=== PATIENT | female | born 1950 | race Caucasian/White ===

== ENCOUNTER 2024-03-22 10:45 | Emergency (ER) | payer MEDICARE, SELFPAY ==
[2024-03-22 10:57] VITALS: PULSE 77; RESP 18; TEMP 37.2; O2SAT 94; BMI 37.2
--- NOTE | 2024-03-22 11:06 | ECG_ITS ---
[facility]24[facility]22 Pat Name: Miriam Duque Department: Room: Gender: Female [employer]ic: : [id number] Requested By: Delvis Silva Order Number: [id number] Vivek MD: Marshall Crandall M.D. Measurements Intervals [place] Rate: 64 P: 41 KS: 173 QRS: 25 QRSD: 87 T: 47 QT: 410 QTc: 424 Interpretive Statements SINUS RHYTHM No previous ECG available for comparison Electronically Signed On 03-23-2024 00:14:24 CDT by Marshall Crandall M.D. [id number]
--- NOTE | 2024-03-22 11:06 | CTR_ITS ---
PROCEDURE INFORMATION: Exam: CT Head Without Contrast Exam date and time: 03/22/2024 11:48 AM Age: 74 years old Clinical indication: Injury or trauma; Fall; Blunt trauma (contusions or hematomas) and concussion/head injury and laceration; Without loss of consciousness; Without residual foreign body; Forehead and scalp TECHNIQUE: Imaging protocol: Computed tomography of the head without contrast. Radiation optimization: All CT scans at this facility use at least one of these dose optimization techniques: automated exposure control; mA and/or kV adjustment per patient size (includes targeted exams where dose is matched to clinical indication); or iterative reconstruction. COMPARISON: CT cervical spin wo con* [id number] 03/22/2024 11:48 AM RADIATION DOSE METRICS: Total DLP (mGy-cm): 1181.1 FINDINGS: Brain: There is a calcified parafalcine meningioma measuring 1.9 x 1.6 cm. There is mild to moderate small vessel disease. There is no evidence of acute parenchymal hemorrhage, extra-axial collection, or acute infarction. Cerebral ventricles: No ventriculomegaly. Paranasal sinuses: Visualized sinuses are unremarkable. No fluid levels. Mastoid air cells: Visualized mastoid air cells are well aerated. Bones: Unremarkable. No acute fracture. Soft tissues: There is right convexity scalp hematoma. CT/CT head wo con* [id number] IMPRESSION: 1. No evidence of acute intracranial process. 2. Mild to moderate small vessel disease. 3. Calcified parafalcine meningioma.
--- NOTE | 2024-03-22 11:06 | CTR_ITS ---
PROCEDURE INFORMATION: Exam: CT Cervical Spine Without Contrast Exam date and time: 03/22/2024 11:48 AM Age: 74 years old Clinical indication: Injury or trauma; Fall; Blunt trauma TECHNIQUE: Imaging protocol: Computed tomography of the cervical spine without contrast. Radiation optimization: All CT scans at this facility use at least one of these dose optimization techniques: automated exposure control; mA and/or kV adjustment per patient size (includes targeted exams where dose is matched to clinical indication); or iterative reconstruction. COMPARISON: CT head wo con* [id number] 03/22/2024 11:48 AM RADIATION DOSE METRICS: Total DLP (mGy-cm): 1037.3 FINDINGS: Bones/joints: No acute fracture. There is reversal of normal cervical lordosis. There is grade 1 anterolisthesis of C7 on T1 and C3 on C4. There is moderate to advanced degenerative disc disease at C5-C6 and C6-C7. There is multilevel spinal canal stenosis most notable at C6-C7 where there is [id number] stenosis secondary to disc osteophyte ridging. Lungs: Lung apices are normal. Soft tissues: Unremarkable. CT/CT cervical spin wo con* [id number] IMPRESSION: No acute findings.
--- NOTE | 2024-03-22 11:15 | ED_ITS ---
HPI - Fall 2 General: Chief Complaint: Head Injury Stated Complaint: head lac s/p fall Time Seen by Provider: 03/22/24 10:53 Source: patient and EMS Mode of arrival: EMS Limitations: no limitations History of Present Illness: 74-year-old female who presents after a fall she states she had felt slightly dizzy and tripped and fell hit her head on the side. Has a large laceration to her forehead denies any loss conscious does have a headache she denies any pain elsewhere denies any lower extremity pain. Rates her headache a 4 out of 10. Associated symptoms-after fall: Denies abdominal pain, chest pain, headache(s) or neck pain Related Data Allergies Allergy/AdvReac Type Severity Reaction Status Date / Time latex Allergy Intermediate Unknown Verified 03/22/24 11:21 Review of Systems 2 Const: Denies: fever(s), chills, body aches or change in appetite Eyes: Denies: blurry vision or eye discomfort ENMT: Denies: throat pain or dental pain Card: Denies: chest pain Resp: Denies: dyspnea GI: Denies: abdominal pain, nausea, vomiting or diarrhea Musc: Denies: neck pain or back pain Skin/Breast: Denies: rash Neuro: Denies: headache(s) Physical Exam 2 Const: COMMON NORMALS: no acute distress, patient oriented x3 and healthy appearing HENMT: OTHER: Roughly 10 to 12 cm laceration to forehead Eye: COMMON NORMALS: Equal, round and reactive pupils present and EOMs intact bilaterally PUPIL: Yes Equal, round and reactive pupils present Neck/C-Spine: COMMON NORMALS: full ROM and supple Chest: COMMONS NORMALS: normal inspection of the chest and normal palpation of entire chest wall Resp: COMMON NORMALS: normal respiratory effort, No retractions, No use of accessory muscles and clear to auscultation bilaterally AUSCULTATION: clear to auscultation bilaterally Cardio: COMMON NORMALS: regular rate, regular rhythm and No murmurs present (Cardio) RATE: regular rate RHYTHM: regular rhythm GI: COMMON NORMALS: Normal to inspection, nondistended, normoactive bowel sounds present, Soft to palpation, non-tender and no masses PALPATION: Yes Soft to palpation Extremity: COMMON NORMALS: normal to inspection and full ROM Neuro: COMMON NORMALS: patient oriented x3, moves all extremities and no focal motor deficits Psych: COMMON NORMALS: mental status grossly normal, Normal thought process present and cooperative THOUGHT PROCESS: Normal thought process present Skin: COMMON NORMALS: no rashes or lesions noted and no wounds GENERAL SKIN EXAM: no rashes or lesions noted Procedures Laceration Laceration 1: Site: face Size (cm): 14 Description: linear Depth: simple, single layer Local Anesthetic: bupivacaine 0.5% Amount of anesthesia used (mL): 20 Pre-repair: wound explored, irrigated extensively and deep structures intact Skin layer closed with: nylon Size (cm): 5-0 Number of sutures: 25 Technique: running Subcutaneous layer closed with: vicryl Size: 4-0 Number of sutures: 7 Technique: simple, interrupted Course 2 Vital Signs: Vital signs: Vital Signs Temperature 99.0 F 03/22/24 10:57 Pulse Rate 68 03/22/24 13:57 Respiratory Rate 18 03/22/24 10:57 Blood Pressure 126/50 03/22/24 13:57 Pulse Oximetry 95 03/22/24 13:57 Oxygen Delivery Me thod Nasal Cannula 03/22/24 13:57 MDM - Fall Medical Decision Making Patient presents here with head laceration from a fall imaging blood work here is normal did repair laceration she is to have suture removal in 7 to 10 days return if worsening. Lab Data I reviewed the patient's lab results. 03/22/24 11:30 03/22/24 11:30 Radiology Impressions Cervical Spine CT 03/22/24 11:06 IMPRESSION: No acute findings. Head CT 03/22/24 11:06 IMPRESSION: 1. No evidence of acute intracranial process. 2. Mild to moderate small vessel disease. 3. Calcified parafalcine meningioma. Laboratory Results WBC 15.96 10^3/uL (3.29-11.43) H 03/22/24 11:30 RBC 3.63 10^6/uL (3.85-5.65) L 03/22/24 11:30 Hgb 11.50 g/dL (11.27-16.99) 03/22/24 11:30 Hct 36.0 % (36-47) 03/22/24 11:30 MCV 99.2 fl (85-98) H 03/22/24 11:30 MCH 31.7 pg (27-33) 03/22/24 11:30 MCHC 31.9 g/dL (30-55) 03/22/24 11:30 RDW 13.2 % (12.1-15.1) 03/22/24 11:30 Plt Count 218 10^3/cmm (157-399) 03/22/24 11:30 MPV 10.1 fL (7.4-10.4) 03/22/24 11:30 Neut % (Auto) 89.5 % 03/22/24 11:30 Lymph % (Auto) 3.9 % 03/22/24 11:30 [place] % (Auto) 5.9 % 03/22/24 11:30 Eos % (Auto) 0.1 % 03/22/24 11:30 Baso % (Auto) 0.2 % 03/22/24 11:30 Neut # (Auto) 14.28 10^3/uL (1.8-7.7) H 03/22/24 11:30 Lymph # (Auto) 0.6 10^3/uL (0.8-4.8) L 03/22/24 11:30 [place] # (Auto) 0.9 10^3/uL (0.2-0.9) 03/22/24 11:30 Eos # (Auto) 0.0 10^3/uL (0.0-0.8) 03/22/24 11:30 Baso # (Auto) 0.0 10^3/uL (0.0-0.1) 03/22/24 11:30 Nucleated RBC % (auto) 0 % 03/22/24 11:30 Nucleated RBCs # 0.0 /100WBC 03/22/24 11:30 PT 20.10 SECONDS (12.1-14.9) H 03/22/24 11:30 INR 1.65 (0.8-1.2) H 03/22/24 11:30 Sodium 136 mmol/L (136-145) 03/22/24 11:30 Potassium 4.1 mmol/L (3.5-5.1) 03/22/24 11:30 Chloride 102 mmol/L (98-107) 03/22/24 11:30 Carbon Dioxide 26 mmol/L (22-29) 03/22/24 11:30 Anion Gap 12.1 (5-19) 03/22/24 11:30 BUN 12 mg/dL (8-23) 03/22/24 11:30 Creatinine 0.6 mg/dL (0.5-0.9) 03/22/24 11:30 GFR Calculation Not Reportable 03/22/24 11:30 Glucose 163 mg/dL (65-115) H 03/22/24 11:30 Calculated Osmolality 285 mOsm/kg (285-295) 03/22/24 11:30 Calcium 8.1 mg/dL (8.5-10.5) L 03/22/24 11:30 Total Bilirubin 0.7 mg/dL (0.15-1.2) 03/22/24 11:30 AST 17 U/L (0-32) 03/22/24 11:30 ALT 14 U/L (0-33) 03/22/24 11:30 Alkaline Phosphatase 80 U/L (35-105) 03/22/24 11:30 Total Protein 6.0 g/dL (6.6-8.7) L 03/22/24 11:30 Albumin 3.6 g/dL (3.5-5.2) 03/22/24 11:30 Globulin 2.4 g/dL (1.3-4.6) 03/22/24 11:30 All radiology interpretation(s) finalized by discharge Discharge Plan Discharge Patient Disposition: Home Clinical Impression: Laceration of head, Fall Condition: Stable Discharge Orders: Discharge ED (Routine); Ordered 03/22/24 Ordered By: Delvis Silva Discharge Diet: Advance as tolerated Discharge Activity: Resume usual activity Patient Instructions: Care For Your Stitches (ED), Head Laceration (ED) Activity Restrictions/Additional Instructions: suture removal in 10 days Coding Level of Care Code ED Gauge And Instrument Inspector for Michele Vizcaino
[2024-03-22 11:53] LABS: Basophils % 0.2 %; Eosinophils % 0.1 %; Lymphocytes # 0.6 10^3/uL (0.8-4.8); Lymphocytes % 3.9 %; Mean Corpuscular HGB Conc 31.9 g/dL (30-55); Mean Corpuscular Hemoglobin 31.7 pg (27-33); Mean Corpuscular Volume 99.2 fl (85-98); Mean Platelet Volume 10.1 fL (7.4-10.4); Monocytes # 0.9 10^3/uL (0.2-0.9); Monocytes % 5.9 %; Neutrophils # 14.28 10^3/uL (1.8-7.7); Neutrophils % 89.5 %; Nucleated Red Blood Cells % 0 %; Platelet Count 218 10^3/cmm (157-399); Red Blood Count 3.63 10^6/uL (3.85-5.65); Red Cell Distribution Width 13.2 % (12.1-15.1); White Blood Count 15.96 10^3/uL (3.29-11.43)
[2024-03-22 12:04] LABS: INR 1.65 (0.8-1.2)
[2024-03-22 12:09] LABS: Alanine Aminotransferase 14 U/L (0-33); Albumin Level 3.6 g/dL (3.5-5.2); Alkaline Phosphatase 80 U/L (35-105); Anion Gap 12.1 (5-19); Aspartate Amino Transferase 17 U/L (0-32); Blood Urea Nitrogen 12 mg/dL (8-23); Calcium 8.1 mg/dL (8.5-10.5); Carbon Dioxide 26 mmol/L (22-29); Chloride 102 mmol/L (98-107); Creatinine Clr Calc Pharmacy 65.6782; Globulin 2.4 g/dL (1.3-4.6); Glucose 163 mg/dL (65-115); Osmolality Calculated 285 mOsm/kg (285-295); Potassium 4.1 mmol/L (3.5-5.1); Sodium 136 mmol/L (136-145); Total Bilirubin 0.7 mg/dL (0.15-1.2)
[2024-03-22 12:18] VITALS: BP 114/43; PULSE 65; O2SAT 92
[2024-03-22 13:57] VITALS: BP 126/50; PULSE 68; O2SAT 95
== END 2024-03-22 17:13 | disposition home or self-care (01) ==
PROVIDERS: Emergency Provider Emergency Medicine
DX: S01.81XA Laceration without foreign body of other part of head, initial encounter (principal); W01.0XXA Fall on same level from slipping, tripping and stumbling without subsequent striking against object, initial encounter
CPT/HCPCS: 12016; 70450; 72125; 80053; 85025; 85610; 93005; 99284